=== PATIENT | male | born 1965 | race American Indian/Alaskan Native ===

== ENCOUNTER 2019-01-21 06:45 | Day surgery (SDC) | payer MEDICARE, OTHER ==
[~2019-01-21 06:45] MED LIST: Dextrose 5%-0.45% NaCl 1,000 ML IV SCH; Midazolam 1 MG/ML 2 ML SDV ONE; Sodium Chloride 0.9% 10 ML Syringe FLUSH PRN; fentaNYL 100 MCG/2 ML SDV ONE
[2019-01-21] MEDS ORDERED: fentaNYL 100 MCG/2 ML SDV IV ONE ×3 (06:46→07:16)
[2019-01-21] MEDS ORDERED: Midazolam 1 MG/ML 2 ML SDV IV ONE ×7 (06:46→07:31)
--- NOTE | 2019-01-21 09:40 | OR ---
DATE: 01/21/2019 PROCEDURE: Total colonoscopy, narrow-band imaging, and multiple cold snare polypectomies. INSTRUMENT USED: [id number] Olympus video colonoscope. PREMEDICATIONS: Fentanyl 100 mcg intravenous, Versed 4 mg intravenous. Nasal O2 cannula. The procedure was done under pulse oximetry, BP recording, and media monitor. INDICATION: The patient with Hemoccult positive stools. Colonoscopic examination is done for detection of any polypoid lesions and removal, endoscopic hemostasis therapy if needed. DESCRIPTION OF PROCEDURE: Initial rectal exam limited, unremarkable. Rigid anoscopy showed small internal hemorrhoids without bleeding from them. The colonoscope was passed with ease. Multiple diminutive distal rectal polyps, 2 in number, were noted; NBI views were obtained of the larger polyp; photograph was taken; cold snare polypectomies were done, the tissues were retrieved and sent for histopathology. The scope was passed with ease up to the ileocecal area, photographs were taken of the normal-appearing cecum, identified by landmarks of appendiceal orifice and double-bulged ileocecal folds. No bleeding was noted from any of the visualized areas at the commencement of the examination. The bowel preparation was found to be adequate, Sabael scale 2 in all the regions. No stricture. No vascular ectasia. No large isolated ulcerations seen. No evidence of diffuse inflammatory bowel disease in the form of friability, contact bleeding, or ulcerations. Probing the proximal sides of folds and flexures, using adequate distention and clearing of the stool material, withdrawal of the scope was made, cecum to rectum time over 6 minutes. No bleeding was noted from any of the visualized areas at the completion of examination. IMPRESSION: 1. Internal hemorrhoids. 2. Diminutive rectal polyps. The patient tolerated the procedure well. [facility] /[id number]
--- NOTE | 2019-01-21 13:21 | LETTER ---
01/21/2019 [facility] [address] [place] [address] RE: SUNNY BRITO : 1965 Dear Mr. Gonzaleztariqkathy: Mr. Sunny Brito had colonoscopic examination done this morning and he tolerated the procedure well. I herewith send a copy of the endoscopy note and photographs for your review. Thank you. Sincerely, [facility] /[id number]
== END 2019-01-21 09:26 | disposition home or self-care (01) ==
LOC: DL.ENDO 06:45
PROVIDERS: ATTEND Internal Medicine Gastroenterology
DX: D12.8 Benign neoplasm of rectum (principal); K52.89 Other specified noninfective gastroenteritis and colitis; K64.8 Other hemorrhoids; E11.9 Type 2 diabetes mellitus without complications; I10 Essential (primary) hypertension; B18.2 Chronic viral hepatitis C; E66.01 Morbid (severe) obesity due to excess calories; Z68.43 Body mass index [BMI] 50.0-59.9, adult; F17.210 Nicotine dependence, cigarettes, uncomplicated; M25.562 Pain in left knee; M25.561 Pain in right knee; Z88.6 Allergy status to analgesic agent; Z79.82 Long term (current) use of aspirin
CPT/HCPCS: 45385; J2250; J3010; J7042; 88305

== ENCOUNTER 2024-04-24 20:29 | Emergency (ER) | payer MEDICARE, MEDICAID, OTHER ==
[2024-04-24] MEDS: Albuterol/Ipratropium 3.0-0.5 MG/3 ML Neb Soln NEB ONE (21:51)
[2024-04-24 22:16] LABS: BASOPHILS PERCENT AUTO 0.3 % (0.0-1.0); EOSINOPHILS PERCENT AUTO 5.3 % (1.0-3.0); HEMATOCRIT 51.8 % (40.0-54.0); HEMOGLOBIN 16.2 g/dL (14.0-18.0); LYMPHOCYTES PERCENT AUTO 29.9 % (20.5-50.1); MEAN CORPUSCULAR HEMOGLOBIN 29.4 pg (27.0-34.0); MEAN CORPUSCULAR HGB CONC 31.3 g/dL (33.0-35.0); MONOCYTES PERCENT AUTO 8.2 % (2-8); NEUTROPHILS PERCENT AUTO 56.3 % (42.2-75.2); PLATELET COUNT,PLT 208 10^3/uL (150-450); RED BLOOD CELL COUNT 5.51 10^6/uL (4.6-6.2); WHITE BLOOD CELL COUNT,WBC 10.5 10^3/uL (5.0-10.0)
[2024-04-24 22:38] LABS: A/G RATIO 0.7; ALBUMIN 3.5 g/dL (3.4-5.0); ANION GAP 14.3 mEq/L (7-13); BILIRUBIN TOTAL 0.3 mg/dL (0.2-1.0); BUN/CREATININE RATIO 16.2 (No establ ref range); CALCIUM 9.1 mg/dL (8.5-10.1); CREATININE 1.42 mg/dL (0.70-1.30); EST CRCL DRUG DOSING (CG) 62.52 mL/min; POTASSIUM,K 4.3 mmol/L (3.5-5.1); PROTEIN TOTAL,TP 8.2 g/dL (6.4-8.2)
[2024-04-24] MEDS: Take Home: Amoxicillin/Clavulanate K 875-125 MG Tab, 6 Tab Pack PO ONE (22:58)
== END 2024-04-24 23:14 | disposition home or self-care (01) ==
LOC: DL.ED 20:29
DX: K04.7 Periapical abscess without sinus (principal); K13.0 Diseases of lips; J44.9 Chronic obstructive pulmonary disease, unspecified; F17.210 Nicotine dependence, cigarettes, uncomplicated; I10 Essential (primary) hypertension; I25.2 Old myocardial infarction; E11.9 Type 2 diabetes mellitus without complications; E66.9 Obesity, unspecified; Z68.43 Body mass index [BMI] 50.0-59.9, adult; Z90.49 Acquired absence of other specified parts of digestive tract; Z79.84 Long term (current) use of oral hypoglycemic drugs; Z79.899 Other long term (current) drug therapy; Z88.6 Allergy status to analgesic agent
CPT/HCPCS: 36415; 71046; 80053; 83880; 84484; 85025; 85379; 93005; 93010; 94640; 94762; 99284; A9270-GY; J7620-GY